=== PATIENT | female | born 1965 | race African-American/Black ===

== ENCOUNTER 2023-11-09 04:37 | Inpatient (IN) | payer SELFPAY ==
[~2023-11-09] VITALS: Ht 162.6 cm; Wt 42.2 kg
[2023-11-09 04:45] VITALS: O2SAT 100
[2023-11-09] MEDS ORDERED: ASPIRIN 325MG EC TABLET PO ONE (06:15)
[2023-11-09] MEDS ORDERED: MORPHINE SULFATE 4 MG/ML CPJ (NOT FOR IM USE) IV ONE (06:15)
[2023-11-09 06:52] LABS: MEAN CORPUSCULAR HEMOGLOBIN 32.1 pg (28.0-32.0); MEAN CORPUSCULAR HGB CONC 30.8 g/dL (31.0-37.0); MEAN PLATELET VOLUME 8.1 fl (7.4-10.4); PLATELET 340 x1000/uL (130-400); RED BLOOD CELL COUNT 2.13 mill/uL (4.2-5.4); RED CELL DISTRIBUTION WIDTH 21.5 % (11.6-14.6); WHITE BLOOD COUNT 2.1 x1000/uL (4.5-11.0)
[2023-11-09 06:55] LABS: DIFFERENTIAL COMMENT 1
[2023-11-09 06:57] LABS: HEMOGLOBIN. 6.8 g/dL (12.0-16.0)
[2023-11-09 06:58] LABS: HEMATOCRIT. 22.2 % (36.0-48.0)
[2023-11-09 07:01] LABS: ALANINE AMINOTRANSFERASE 26 IU/L (10-49); ALBUMIN 4.1 g/dL (3.2-4.8); ASPARTATE AMINOTRANSFERASE 197 IU/L (<34); BILIRUBIN TOTAL 4.5 mg/dL (0.1-1.0); CALCIUM 9.3 mg/dL (8.7-10.4); CARBON DIOXIDE 22 mEq/L (21-32); CHLORIDE 107 mEq/L (98-107); CREATININE 1.4 mg/dL (0.6-1.0); GLUCOSE 128 mg/dL (70-105); PROTEIN TOTAL 7.5 g/dL (6.0-8.3); SODIUM 139 mEq/L (136-145); TROPONIN I HIGH SENSITIVITY 18 ng/L (3.0-34); UREA NITROGEN BLOOD 26 mg/dL (9-23)
[2023-11-09] MEDS ORDERED: IPRATROPIUM/ALBUTEROL 0.5-3(2.5)MG/3ML NEB HHN PRN (09:00)
[2023-11-09] MEDS ORDERED: DOCUSATE SODIUM 100MG CAPSULE PO PRN (09:00)
[2023-11-09] MEDS ORDERED: CLONIDINE 0.1MG TABLET PO PRN (09:00)
[2023-11-09] MEDS ORDERED: ONDANSETRON HCL 4MG/2ML INJ IV PRN (09:00)
[2023-11-09] MEDS ORDERED: ACETAMINOPHEN 325MG TABLET PO PRN ×2 (09:00)
[2023-11-09] MEDS ORDERED: GUAIFENESIN 200MG/10ML SUGAR FREE UDC PO PRN (09:00)
[2023-11-09] MEDS ORDERED: MAGNESIUM/ALUMINUM HYDROXIDE/SIMETHICONE 30ML UDC PO PRN (09:00)
[2023-11-09] MEDS ORDERED: PANTOPRAZOLE SODIUM 40 MG/VIAL IV SCH (09:00)
[2023-11-09] MEDS: SODIUM CHLORIDE 0.9% 1,000 ML IV SCH ×2 (10:53→22:52)
[2023-11-09 15:12] LABS: CREATINE KINASE 297 IU/L (34-145); IRON 12 ug/dL (50-170); TOTAL IRON BINDING CAPACITY 311 ug/dl (250-425)
[2023-11-09 15:15] LABS: FERRITIN 146 ng/mL (10-291); FOLIC ACID (FOLATE) SERUM 16.21 ng/mL (>5.38); VITAMIN B12 SERUM 729 pg/mL (211-911)
[2023-11-09 15:18] LABS: INR 1.2; PARTIAL THROMBOPLASTIN TIME 25.3 sec (23.4-31.0); PROTHROMBIN TIME 13.2 sec (9.6-11.0)
[2023-11-09 15:26] LABS: D-DIMER > 35.20 mg/L FEU (<0.50)
[2023-11-09 15:43] LABS: CREATINE KINASE MB FRACTION < 0.0 ng/mL (0.5-3.6); TROPONIN I HIGH SENSITIVITY 37 ng/L (3.0-34)
[2023-11-09 16:03] LABS: ANISOCYTOSIS 2+; PLATELET ESTIMATE NORMAL
[2023-11-09 19:50] VITALS: BP 106/48; PULSE 120; RESP 20; TEMP 98.1
[2023-11-09 20:00] VITALS: BP 106/48; PULSE 120; RESP 20; TEMP 98.1
[2023-11-09 20:15] VITALS: BP 104/54; PULSE 121; RESP 20; TEMP 98
[2023-11-09] MEDS ORDERED: HYDROCODONE/ACETAMINOPHEN 5/325MG TABLET PO PRN (21:00)
[2023-11-09 21:15] VITALS: BP 110/58; PULSE 113; RESP 20; TEMP 98.2
[2023-11-09 21:33] LABS: CREATINE KINASE MB FRACTION 3.4 ng/mL (0.5-3.6)
[2023-11-10] MEDS ORDERED: MORPHINE SULFATE 2 MG/ML CPJ (NOT FOR IM USE) IV NR (00:45)
[2023-11-10 01:44] LABS: TROPONIN I HIGH SENSITIVITY 53 ng/L (3.0-34)
== END 2023-11-10 03:02 | DRG 663 ==
LOC: ER 04:50 → EDBEDREQ 08:17 → 8WST 20:25
PROVIDERS: ADMIT Internal Medicine; ATTEND Internal Medicine
PROC: 30233N1 Transfusion of Nonautologous Red Blood Cells into Peripheral Vein, Percutaneous Approach (ICD-10-PCS; 2023-11-09)
PROC: 5A12012 Performance of Cardiac Output, Single, Manual (ICD-10-PCS; principal; 2023-11-10)
PROC: 0BH17EZ Insertion of Endotracheal Airway into Trachea, Via Natural or Artificial Opening (ICD-10-PCS; 2023-11-10)
DX: D50.9 Iron deficiency anemia, unspecified (principal); N17.9 Acute kidney failure, unspecified; R07.89 Other chest pain; D58.9 Hereditary hemolytic anemia, unspecified; F17.210 Nicotine dependence, cigarettes, uncomplicated; F14.10 Cocaine abuse, uncomplicated; I10 Essential (primary) hypertension; J44.9 Chronic obstructive pulmonary disease, unspecified; Z90.710 Acquired absence of both cervix and uterus; Z79.899 Other long term (current) drug therapy; Z88.0 Allergy status to penicillin; Z88.8 Allergy status to other drugs, medicaments and biological substances
CPT/HCPCS: 36415; 71045; 76700; 80053; 82550; 82553; 82607; 82728; 82746; 82962; 83540; 83550; 84484; 85025; 85044; 85379; 86850; 86900; 86920; 93005; 93970; 99291; J2270; P9016